=== PATIENT | female | born 1965 | race Caucasian/White ===

== ENCOUNTER 2016-08-14 18:36 | Emergency (ER) | payer MEDICAID ==
[~2016-08-14] VITALS: Ht 172.7 cm; Wt 77.1 kg
[2016-08-14 18:36] VITALS: BP 124/83
[2016-08-14] MEDS ORDERED: predniSONE 20 MG TABLET ONE (20:27)
[2016-08-14] MEDS ORDERED: ALBUTEROL FS 2.5 MG/3 ML VIAL.NEB NEB ONE (20:30)
[2016-08-14] MEDS ORDERED: predniSONE 20 MG TABLET PO ONE (20:30)
[2016-08-14] MEDS ORDERED: IPRATROPIUM NEB FS 0.5 MG/2.5 ML AMPUL.NEB NEB ONE (20:30)
[2016-08-14] MEDS ORDERED: IPRATROPIUM NEB FS 0.5 MG/2.5 ML AMPUL.NEB ONE (20:35)
[2016-08-14] MEDS ORDERED: ALBUTEROL FS 2.5 MG/3 ML VIAL.NEB ONE (20:35)
== END 2016-08-14 21:25 | disposition home or self-care (01) ==
LOC: ER 18:38
DX: R20.2 Paresthesia of skin (principal); J44.1 Chronic obstructive pulmonary disease with (acute) exacerbation; F17.210 Nicotine dependence, cigarettes, uncomplicated
CPT/HCPCS: 94640; 99283; A4606; J7512; Z7610

== ENCOUNTER 2016-08-15 15:49 | Emergency (ER) | payer MEDICAID ==
[~2016-08-15] VITALS: Ht 170.2 cm; Wt 76.7 kg
--- NOTE | 2016-08-15 16:29 | NUR ---
DR PEREZ AT BEDSIDE FOR EVAL.
--- NOTE | 2016-08-15 16:38 | NUR ---
CALLED RT FOR BREATHING TREATMENT
[2016-08-15] MEDS ORDERED: IPRATROPIUM NEB FS 0.5 MG/2.5 ML AMPUL.NEB ONE (16:43)
[2016-08-15] MEDS ORDERED: ALBUTEROL FS 2.5 MG/3 ML VIAL.NEB ONE (16:43)
[2016-08-15] MEDS ORDERED: ONDANSETRON 4 MG TAB.RAPDIS ONE (16:47)
[2016-08-15] MEDS ORDERED: HYDROCODONE/APAP 10/325MG 1 EA TABLET ONE (16:47)
[2016-08-15] MEDS ORDERED: HYDROCODONE/APAP 10/325MG 1 EA TABLET PO ONE (17:00)
[2016-08-15] MEDS ORDERED: ONDANSETRON 4 MG TAB.RAPDIS SL ONE (17:00)
[2016-08-15] MEDS ORDERED: ALBUTEROL FS 2.5 MG/0.5 ML VIAL.NEB NEB ONE (17:00)
[2016-08-15] MEDS ORDERED: IPRATROPIUM NEB FS 0.5 MG/2.5 ML AMPUL.NEB NEB ONE (17:00)
[2016-08-15] MEDS ORDERED: MORPHINE SULFATE INJ 2 MG/ML DISP.SYRIN ONE (17:58)
[2016-08-15] MEDS ORDERED: MORPHINE SULFATE INJ 2 MG/ML DISP.SYRIN IM ONE (18:00)
[2016-08-15 18:08] VITALS: BP 122/79
== END 2016-08-15 19:11 | disposition home or self-care (01) ==
LOC: EDUNIT# 15:49 → ER 15:52
DX: R51 Headache (principal); J32.9 Chronic sinusitis, unspecified; J40 Bronchitis, not specified as acute or chronic; M54.2 Cervicalgia; F17.210 Nicotine dependence, cigarettes, uncomplicated; J44.9 Chronic obstructive pulmonary disease, unspecified; J45.909 Unspecified asthma, uncomplicated; R05 Cough; Z90.710 Acquired absence of both cervix and uterus
CPT/HCPCS: 70450; 71010; 94640; 96372; 99284; A4606; J2270; Q0162; Z7610